=== PATIENT | female | born 1960 | race Caucasian/White ===

== ENCOUNTER 2017-05-10 17:36 | Emergency (ER) | END 2017-05-10 20:05 | disposition home or self-care (01) ==

== ENCOUNTER 2018-07-28 15:10 | Emergency (ER) | payer OTHER ==
[~2018-07-28] VITALS: Ht 170.2 cm; Wt 101.0 kg
[~2018-07-28 15:10] MED LIST: ACET1TAB40 PO; BACTDS PO; BENA20TA4 PO; CEPH-443 PO; CIPR500T4 PO; GABA300C16 PO; HYDR-4011 PO; HYDR-906 PO; IBUP-1561 PO; METF-849 PO; NAPR-985 PO; NITR-58 PO; PHEN-537 PO; PHEN-538 PO
[2018-07-28 15:13] VITALS: BP 146/95; PULSE 79; RESP 18; Ht 170.2 cm; Wt 101.0 kg
[2018-07-28] MEDS ORDERED: ACETAMINOPHEN 500 MG TAB PO STA (15:31)
[2018-07-28] MEDS ORDERED: LIDOCAINE 1% (MDV) 20 ML INJ SC ONE (16:00)
[2018-07-28] MEDS ORDERED: ACETAMINOPHEN 325 MG TAB PO ONE (16:00)
[2018-07-28] MEDS ORDERED: ACET500C5 PO (16:01)
[2018-07-28] MEDS ORDERED: CEPH-443 PO (16:01)
--- NOTE | 2018-07-28 16:04 | ERD ---
ER Documentation Chief Complaint Chief Complaint C/O LEFT INGROW TOENAIL FOR 1O DAYS HPI 58-year-old female presents with some bleeding and irritation and pain associated with the area around the left big toenails for the last 10 days patient has history of trauma. Denies fevers, additional complaints. ROS All systems reviewed and are negative except as per history of present illness. Medications Home Meds Active Scripts Cephalexin* (Keflex*) 500 Mg Capsule, 500 MG PO QID for 7 Days, CAP Prov:TRACEE PRIEST MD 07/28/18 Acetaminophen* (Tylophen*) 500 Mg Capsule, 1 CAP PO Q6H PRN for PAIN AND OR ELEVATED TEMP, #15 CAP Prov:TRACEE PRIEST MD 07/28/18 Cephalexin* (Keflex*) 500 Mg Capsule, 500 MG PO QID for 7 Days, CAP Prov:BROOKE JACINTO PA-C 05/10/17 Hydrocodone/Acetaminophen ([place] 5-325 Tablet) 1 Each Tablet, 1 TAB PO Q6H PRN for PAIN, #20 TAB Prov:PITO LORENZO NP 12/12/15 Gabapentin* (Gabapentin*) 300 Mg Capsule, 300 MG PO BID, #60 CAP Prov:PITO LORENZO NP 12/12/15 Ibuprofen* (Motrin*) 400 Mg Tab, 400 MG PO Q6H PRN for PAIN AND OR ELEVATED TEMP, #30 TAB Prov:PITO LORENZO NP 12/12/15 Phenazopyridine Hcl* (Pyridium*) 200 Mg Tab, 200 MG PO TID PRN for PAIN, #9 TAB 0 Refills Prov:AGNIESZKA HARMON PA-C 06/24/15 Sulfamethoxazole-Trimethoprim* (Bactrim* DS) 800-160 Mg Tab, 1 TAB PO BID, #14 TAB 0 Refills Prov:AGNIESZKA HARMON PA-C 06/24/15 Ciprofloxacin Hcl* (Ciprofloxacin Hcl*) 500 Mg Tablet, 500 MG PO BID, #14 TAB 0 Refills Prov:AGNIESZKA HARMON PA-C 06/24/15 Phenazopyridine Hcl* (Pyridium*) 100 Mg Tab, 100 MG PO TID PRN for burning, #8 TAB Prov:KEENA CASTAÑEDA 06/19/15 Nitrofurantoin Monohyd Macrocr* (Macrobid*) 100 Mg Capsr, 100 MG PO BID for 7 Days, CAP Prov:KEENA CASTAÑEDA 06/19/15 Hydrocodone Bit-Acetaminophen ([place]) 5-325 Mg Tablet, 1 TAB PO Q4H PRN for PAIN, #20 TAB Prov:JEREMY BERGERC 11/17/14 Cephalexin* (Keflex*) 500 Mg Capsule, 500 MG PO QID for 7 Days, CAP Prov:JEREMY BERGERC 11/17/14 Sulfamethoxazole-Trimethoprim* (Bactrim* DS) 800-160 Mg Tab, 1 TAB PO BID for 7 Days, TAB Prov:JEREMY BERGERC 11/17/14 Naproxen* (Naprosyn*) 500 Mg Tablet, 500 MG PO BID, #30 TAB Prov:JEREMY BERGER PA-C 11/07/14 Acetaminophen-Codeine* (Acetaminophen-Cod #3*) 300-30 Mg Tab, 1 TAB PO Q4H PRN for PAIN, #15 TAB Prov:JEREMY BERGERC 11/07/14 Reported Medications Benazepril Hcl* (Benazepril Hcl*) Unknown Strength Tablet, PO DAILY, #30 TAB 12/11/15 Metformin* (Glucophage*) Unknown Strength Tab, PO BID, #20 TAB 12/11/15 Allergies Allergies: Coded Allergies: No Known Drug Allergies (Verified Allergy, Mild, 10/18/13) PMhx/Soc Medical and Surgical Hx: pt denies Surgical Hx History of Surgery: No Anesthesia Reaction: No Hx Neurological Disorder: No Hx Respiratory Disorders: No Hx Cardiac Disorders: Yes (HTN) Hx Psychiatric Problems: No Hx Miscellaneous Medical Probl: Yes (DM) Hx Alcohol Use: No Hx Substance Use: No Hx Tobacco Use: No Smoking Status: Never smoker FmHx Family History: No diabetes, No coronary disease, No other Physical Exam Vitals Vital Signs Date Temp Pulse Resp B/P (MAP) Pulse Ox O2 O2 Flow FiO2 Time Delivery Rate 07/28/18 98.0 79 18 146/95 97 15:13 (112) Physical Exam Const: No acute distress Head: Atraumatic Eyes: Normal Conjunctiva ENT: Normal External Ears, Nose and Mouth. Neck: Full range of motion. No meningismus. Resp: Clear to auscultation bilaterally Cardio: Regular rate and rhythm, no murmurs Abd: Soft, non tender, non distended. Normal bowel sounds Skin: No petechiae or rashes Back: No midline or flank tenderness Ext: No cyanosis, or edema. Ingrown toenails in the left big toe bilaterally. Slight amount of oozing. Slight irritation redness no induration or streaking. No deformities. Neur: Awake and alert Psych: Normal Mood and Affect Results 24 hrs Current Medications Medications Dose Sig/Go Start Time Status Last (Trade) Ordered Route PRN Stop Time Admin Dose Reason Admin 500 mg ONCE STAT 07/28/18 DC Acetaminophen PO 15:31 (Tylenol 07/28/18 15:37 Tab) 650 mg ONCE ONCE 07/28/18 DC 07/28/18 Acetaminophen PO 16:00 15:39 (Tylenol 07/28/18 16:01 Tab) Lidocaine 20 ml ONCE ONCE 07/28/18 DC (Xylocaine SC 16:00 1% (Mdv) 20 07/28/18 16:01 ml) Procedures/MDM Patient presents with left big ingrown toenail. There is no current signs or symptoms of osteomyelitis, fracture, sepsis, foreign body, additional complications. Procedure note-patient was given Tylenol for pain. Left big toe was prepped with Betadine. 4 cc of lidocaine was used for local dilatation and digital block. Using clamps and scissors the ingrown portion of the nail bilaterally was removed and debrided. Patient tolerated procedure well and wound was dressed. Will be discharged home with a prescription Tylenol Keflex given the redness recommendations a 2-day recheck for worsening redness, fevers, new worsening symptoms. The patient was stable with no new complaints during the ER course. Clinically, there is no current evidence to suggest meningitis, sepsis, acute abdomen, pneumonia, stroke, acute coronary syndrome, pulmonary embolism, aortic dissection or any other emergent condition appearing to require further evaluation or hospitalization. Patient counseled regarding my diagnostic impression and care plan. Prior to discharge all questions answered. Pt agrees with treatment plan and understands strict return precautions. Pt is instructed to follow up with primary care provider within 24-48 hours. Precautionary instructions provided including instructions to return to the ER if not improving or for any worsening or changing symptoms or concerns. Disclaimer: Inadvertent spelling and grammatical errors are likely due to EHR/dictation software use and do not reflect on the overall quality of patient care. Also, please note that the electronic time recorded on this note does not necessarily reflect the actual time of the patient encounter. Departure Diagnosis: Primary Impression: Ingrown toenail of right foot Condition: Stable Patient Instructions: Ingrown Toenail, Excised Additional Instructions: Recommend recheck for worsening redness, fevers, new worsening symptoms. TRACEE PRIEST MD July 28, 2018 16:04
== END 2018-07-28 16:36 | disposition home or self-care (01) ==
LOC: FTE 15:10
DX: L60.0 Ingrowing nail (principal); I10 Essential (primary) hypertension; E11.9 Type 2 diabetes mellitus without complications; Z79.84 Long term (current) use of oral hypoglycemic drugs